=== PATIENT | female | born 1960 | race Caucasian/White ===

== ENCOUNTER 2024-12-13 07:29 | Day surgery (SDC) | payer MEDICAID, SELFPAY ==
[2024-12-13] VITALS (12 sets, daily range): BP systolic 135–171; BP diastolic 80–96; PULSE 73–94; RESP 18–20; TEMP 36.2–36.9; O2SAT 92–96; BMI 39.8
[2024-12-13] MEDS: LACTATED RINGERS 1000 ML 1,000 ML 100 ML IV (08:10)
[2024-12-13] MEDS: SODIUM CHLORIDE 0.9 % (FLUSH) 10 ML SYRINGE IVF (08:12)
--- NOTE | 2024-12-13 09:24 | PM.EN ---
Chart Event Note Chart Event Note: Anesthesia unable to intubate patient secondary to significant amount of soft tissue and poor visualization. Patient went into bronchospasm during manipulation with difficulty oxygenating requiring reversal. Procedure canceled. Recommend reschedule at a tertiary center with need for awake fiberoptic intubation.
--- NOTE | 2024-12-13 09:27 | SUR.PHASEI ---
pt bronchospasm in OR surgery not done in PACU for observation vss pt denies any sob or discomfort
--- NOTE | 2024-12-13 09:38 | P.ANES_ITS ---
Anesthesia Charges Start Date/Time Anesthesia Start Date: 12/13/24 Anesthesia Start Time: 08:44 Stop Date/Time Anesthesia Stop Date: 12/13/24 Anesthesia Stop Time: 09:15 Coding CPT Codes CPT Codes: ANESTH SURG UPPER ABDOMEN - 23800 ([id number]) P3 - PATIENT W/SEVERE SYS DISEASE, QK - ELECTRICAL PRODUCTS SALES ENGINEER 2-4 CNCRNT ANES PROC, QX - RESEARCH & INSIGHTS EXECUTIVE SVC W/ MD MED DIRECTION
--- NOTE | 2024-12-13 09:38 | W.ANESCHARGE ---
Anesthesia Charges Start Date/Time Anesthesia Start Date: 12/13/24 Anesthesia Start Time: 08:44 Stop Date/Time Anesthesia Stop Date: 12/13/24 Anesthesia Stop Time: 09:15 Coding CPT Codes CPT Codes: ANESTH SURG UPPER ABDOMEN - 38162 ([id number]) P3 - PATIENT W/SEVERE SYS DISEASE, QK - NETWORK TECHNICIAN 2-4 CNCRNT ANES PROC, QX - JUNIOR [employer] PRINCIPAL SVC W/ MD MED DIRECTION
--- NOTE | 2024-12-13 09:51 | P.ANES_ITS ---
Anesthesia Charges Start Date/Time Anesthesia Start Date: 12/13/24 Anesthesia Start Time: 08:44 Stop Date/Time Anesthesia Stop Date: 12/13/24 Anesthesia Stop Time: 09:15 Coding CPT Codes CPT Codes: ANESTH SURG UPPER ABDOMEN - 79623 ([id number]) QK - MOBILE UI DESIGNER 2-4 CNCRNT ANES PROC, QX - PULP PRESS TENDER SVC W/ MD MED DIRECTION, P3 - PATIENT W/SEVERE SYS DISEASE
--- NOTE | 2024-12-13 09:51 | W.ANESCHARGE ---
Anesthesia Charges Start Date/Time Anesthesia Start Date: 12/13/24 Anesthesia Start Time: 08:44 Stop Date/Time Anesthesia Stop Date: 12/13/24 Anesthesia Stop Time: 09:15 Coding CPT Codes CPT Codes: ANESTH SURG UPPER ABDOMEN - 91021 ([id number]) QK - CELL COVERER 2-4 CNCRNT ANES PROC, QX - ROLLER SKATE ASSEMBLER SVC W/ MD MED DIRECTION, P3 - PATIENT W/SEVERE SYS DISEASE
== END 2024-12-13 10:50 | disposition home or self-care (01) ==
PROVIDERS: PCP Family Medicine; Visit Provider Surgery
PROC: 0FT44ZZ Resection of Gallbladder, Percutaneous Endoscopic Approach (ICD-10-PCS; CPT 47562; principal; 2024-12-13 12:00)
DX: Z53.09 Procedure and treatment not carried out because of other contraindication (principal); T88.4XXA Failed or difficult intubation, initial encounter; J98.01 Acute bronchospasm; K82.4 Cholesterolosis of gallbladder
CPT/HCPCS: 47562; 00790; J0171; J0330; J1100; J2250; J2704; J3010; J3490; J7120